=== PATIENT | female | born 1955 | race Caucasian/White ===

== ENCOUNTER 2017-03-10 11:06 | Emergency (ER) | payer OTHER ==
[~2017-03-10] VITALS: Ht 162.6 cm; Wt 72.5 kg
[~2017-03-10 11:06] MED LIST: DILA2TAB4 PO; OMEP20CA5 PO; PRIN10TA PO
[2017-03-10 11:08] VITALS: BP 182/96; PULSE 86; RESP 16; TEMP 98.9; O2SAT 98
[2017-03-10 11:37] VITALS: BP 177/81; PULSE 72; RESP 18; TEMP 97.8; O2SAT 98
[2017-03-10] MEDS ORDERED: CEPH-460 PO (11:39)
[2017-03-10] MEDS ORDERED: HYDR-3516 PO (11:39)
[2017-03-10] MEDS ORDERED: SODIUM CHLOR 0.9% 1000 ML INJ 1,000 ML IV ONE (12:00)
--- NOTE | 2017-03-10 12:00 | PD ---
HPI Chief Complaint: Fever Time Seen by Provider: 12:00 Travel History International Travel<30 days: No Contact w/Intl Traveler<30days: No Traveled to known affect area: No History of Present Illness HPI 61-year-old female presents to the emergency department for evaluation of fever that started on Monday night, 3 days ago. The patient states she was treated for cellulitis of the left foot approximately 3 weeks ago. She states she had surgery on the left ankle in December. She states the symptoms did resolve. She states she did have erythema that extended usp up the calf, but has no erythema at this time. She states she has weakness, fatigue, body aches, muscle cramping. She denies any cough or congestion. No chest pain. No urinary symptoms. She denies any shortness of breath. No abdominal pain. No nausea, vomiting, diarrhea. Patient reports history of hypertension, but is not currently on any prescribed medications. She states she has been taking Excedrin and is unsure when her last fever was. She has no other complaints at this time. Patient denies any history of pneumonia. Patient reports chronic left extremity swelling since her previous ankle surgery. She states is unchanged. 3 weeks ago, she had a negative ultrasound for DVT at another hospital. PFSH Past Medical History Arthritis: Yes Blood Disorders: No Cancer: No Cardiovascular Problems: Yes High Cholesterol: Yes Diabetes: No Endocrine: No Gastrointestinal Disorders: Yes Genitourinary: No Hiatal Hernia: Yes Hypertension: Yes Immune Disorder: No Musculoskeletal: Yes Neurologic: No Psychiatric: No Respiratory: No Influenza Vaccination: No Past Surgical History Genitourinary Surgery: Yes (BLADDER SLING, GASTRO BYPASS) Gynecologic Surgery: Yes (OVARIAN CYST REMOVED,HYSTERECTOMY) Hysterectomy: Yes (TOTAL) Social History Alcohol Use: Yes (RARE) Tobacco Use: No Substance Use: No Allergies-Medications (Allergen,Severity, Reaction): Coded Allergies: Percocet (Verified Allergy, Severe, HYPERACTIVE, 05/11/10) Sulfa (Verified Allergy, Severe, Hives, 03/10/17) Reported Meds & Prescriptions Reported Meds & Active Scripts Active Reported Hydrocodone-Acetaminophen 5-325 mg Tab 1 Tab PO Q6H PRN Keflex (Cephalexin) 500 Mg Cap 500 Mg PO Q8H Review of Systems Except as stated in HPI: all other systems reviewed are Neg Physical Exam Narrative GENERAL: Well-nourished, well-developed female patient, ambulatory. Afebrile. SKIN: Focused skin assessment warm/dry. HEAD: Normocephalic. Atraumatic. ENT: Mucosa pink and moist. No erythema or exudates. No uvular edema. No uvular , palatal, or tonsillar deviation. Airway patent. Nasal turbinates appear normal without nasal blood, purulent drainage or septal hematoma. Bilateral tympanic membranes are clear without erythema or perforation. EYES: No scleral icterus. No injection or drainage. NECK: Supple, trachea midline. No JVD or lymphadenopathy. CARDIOVASCULAR: Regular rate and rhythm without murmurs, gallops, or rubs. RESPIRATORY: Breath sounds equal bilaterally. No accessory muscle use. Lungs sounds are clear to auscultation. GASTROINTESTINAL: Abdomen soft, non-tender, nondistended. MUSCULOSKELETAL: No cyanosis, or edema. Patient has scar noted to left lateral ankle. She has reduced range of motion of left ankle, but patient states this is chronic from her from previous surgery. Symptoms are unchanged. No evidence of cellulitis. BACK: Nontender without obvious deformity. No CVA tenderness. Data Data Last Documented VS Vital Signs Date Time Temp Pulse Resp B/P Pulse Ox O2 Delivery O2 Flow Rate FiO2 03/10/17 11:37 97.8 72 18 177/81 98 Room Air Orders Iv Access Insert/Monitor (03/10/17 12:00) Complete Blood Count With Diff (03/10/17 12:00) Basic Metabolic Panel (Bmp) (03/10/17 12:00) Influenzae A/B Antigen (03/10/17 12:00) Chest, Single Ap (03/10/17 ) Urinalysis - C+S If Indicated (03/10/17 12:00) Sodium Chlor 0.9% 1000 Ml Inj (Ns 1000 M (03/10/17 12:00) Ondansetron Inj (Zofran Inj) (03/10/17 12:45) Potassium Chloride (Kcl) (03/10/17 13:30) Labs Laboratory Tests Test 03/10/17 12:15 White Blood Count 9.0 TH/MM3 Red Blood Count 4.82 MIL/MM3 Hemoglobin 14.0 GM/DL Hematocrit 42.4 % Mean Corpuscular Volume 88.0 FL Mean Corpuscular Hemoglobin 29.0 PG Mean Corpuscular Hemoglobin 33.0 % Concent Red Cell Distribution Width 13.9 % Platelet Count 288 TH/MM3 Mean Platelet Volume 9.5 FL Neutrophils (%) (Auto) 73.1 % Lymphocytes (%) (Auto) 18.0 % Monocytes (%) (Auto) 6.7 % Eosinophils (%) (Auto) 1.9 % Basophils (%) (Auto) 0.3 % Neutrophils # (Auto) 6.5 TH/MM3 Lymphocytes # (Auto) 1.6 TH/MM3 Monocytes # (Auto) 0.6 TH/MM3 Eosinophils # (Auto) 0.2 TH/MM3 Basophils # (Auto) 0.0 TH/MM3 CBC Comment DIFF FINAL Differential Comment Urine Color YELLOW Urine Turbidity HAZY Urine pH 5.0 Urine Specific [place] 1.022 Urine Protein TRACE mg/dL Urine Glucose (UA) NEG mg/dL Urine Ketones 40 mg/dL Urine Occult Blood NEG Urine Nitrite NEG Urine Bilirubin NEG Urine Urobilinogen 2.0 MG/DL Urine Leukocyte Esterase MOD Urine RBC 1 /hpf Urine WBC 2 /hpf Urine Squamous Epithelial 4 /hpf Cells Urine Mucus FEW /lpf Microscopic Urinalysis Comment CULT NOT INDICATED Sodium Level 141 MEQ/L Potassium Level 3.3 MEQ/L Chloride Level 105 MEQ/L Carbon Dioxide Level 27.4 MEQ/L Anion Gap 9 MEQ/L Blood Urea Nitrogen 14 MG/DL Creatinine 0.83 MG/DL Estimat Glomerular Filtration 70 ML/MIN Rate Random Glucose 91 MG/DL Calcium Level 9.3 MG/DL [facility] Medical Decision Making Medical Screen Exam Complete: Yes Emergency Medical Condition: Yes Medical Record Reviewed: Yes Interpretation(s) chest x-ray - CONCLUSION: No acute cardiopulmonary process. Differential Diagnosis Viral syndrome versus influenza versus UTI versus pneumonia Narrative Course 61-year-old female presents to the emergency department for evaluation of fever since Monday night. She does say she was recently given antibiotics for cellulitis approximately 3 weeks ago. However, those symptoms have resolved. Patient appears well and exam. CBC, BMP, UA, and influenza, chest x-ray ordered and pending. Patient is given normal saline 1 L IV bolus. CBC shows no acute abnormality, WBC is 9.0. BMP shows hypokalemia at 3.3, no acute abnormality. UA is negative for acute infection. Influenza is negative. Chest x-ray shows no acute cardiopulmonary process. Patient is given potassium 20meq PO. Patient is stable for discharge. She is instructed to follow up with her primary care physician. I discussed the case with my attending physician, Dr. Beatty, who agrees with plan and disposition. The patient was discharged in stable condition with instructions, including return instructions and follow up instructions. Diagnosis Primary Impression: Viral syndrome Referrals: Primary Care Physician call for appointment Patient Instructions: General Instructions, Viral Syndrome (ED) Additional Instructions: Take Zofran as instructed as needed for nausea. Tylenol/ibuprofen as needed. Drink plenty of fluids. Follow-up with your primary care physician. Return to the emergency department for any acute worsening of symptoms. Med/Other Pt SpecificInfo: Prescription(s) given Scripts Ondansetron Odt 4 Mg Tab4 Mg SL Q6HR PRN (Nausea/Vomiting) #16 TAB Ref 0 Prov:Sara Plasencia 03/10/17 Disposition: 01 DISCHARGE HOME Condition: Stable Sara Plasencia March 10, 2017 12:00
[2017-03-10 12:39] LABS: AUTOMATED NEUTROPHIL # 6.5 TH/MM3 (1.8-7.7); BASOPHIL % 0.3 % (0.0-2.0); EOSINOPHIL # 0.2 TH/MM3 (0-0.4); EOSINOPHIL % 1.9 % (0.0-4.0); HEMATOCRIT 42.4 % (35.0-46.0); HEMO FLAGS DIFF FINAL; LYMPHOCYTE # 1.6 TH/MM3 (1.0-4.8); MONO % 6.7 % (0.0-8.0); NEUT % 73.1 % (16.0-70.0); PLATELET COUNT 288 TH/MM3 (150-450); RED BLOOD COUNT 4.82 MIL/MM3 (4.00-5.30); RED CELL DISTRIBUTION WIDTH 13.9 % (11.6-17.2)
[2017-03-10] MEDS ORDERED: ONDANSETRON HCL 4 MG/2 ML VIAL IV PUSH ONE (12:45)
[2017-03-10 12:51] LABS: BLOOD, URINE NEG (NEG); COMMENT (UR) CULT NOT INDICATED; CULTURE IF INDICATED CULT NOT INDICATED; GLUCOSE,URINE NEG (NEG); KETONE, URINE 40 mg/dL (NEG); MUCUS URINE FEW /lpf (OCC); NITRITE,URINE NEG (NEG); SQUAMOUS EPITHELIAL CELL URINE 4 /hpf (0-5); URINE COLOR YELLOW (YELLW/STRAW)
[2017-03-10 13:04] LABS: BICARBONATE 27.4 MEQ/L (21.0-32.0); POTASSIUM 3.3 MEQ/L (3.5-5.1)
--- NOTE | 2017-03-10 13:06 | RADRPT ---
EXAM DATE/TIME: 03/10/2017 12:01 [facility] COMPARISON: No previous studies available for comparison. INDICATIONS : Patient states flu like symptoms and chest tightness for one week. MEDICAL HISTORY : Hypertension. SURGICAL HISTORY : None. ENCOUNTER: Initial ACUITY: 1 week PAIN SCORE: 0/10 LOCATION: Bilateral chest FINDINGS: A single view of the chest demonstrates the lungs to be symmetrically aerated without evidence of mas s, infiltrate or effusion. The cardiomediastinal contours are unremarkable. Osseous structures are intact. CONCLUSION: No acute cardiopulmonary process. Juan Pablo Currie MD on March 10, 2017 at 13:04 Board Certified Radiologist. This report was verified electronically.
[2017-03-10] MEDS ORDERED: POTASSIUM CHLORIDE 20 MEQ CONTROLLED RELEASE TAB PO ONE (13:30)
[2017-03-10 13:31] VITALS: BP 157/60; PULSE 68; RESP 18; O2SAT 98
[2017-03-10] MEDS ORDERED: ONDA4TAB7 SL (13:35)
== END 2017-03-10 14:08 | disposition home or self-care (01) ==
LOC: NEPE 11:06
DX: B34.9 Viral infection, unspecified (principal)
CPT/HCPCS: 71010; 80048; 81001; 85025; 87804; 96361; 96374; 99283; J2405; J7030